=== PATIENT | female | born 2000 | race Caucasian/White ===

== ENCOUNTER 2022-02-08 09:54 | Emergency (ER) | payer OTHER, MEDICAID, SELFPAY ==
[2022-02-08] VITALS (28 sets, daily range): BP systolic 128–146; BP diastolic 73–93; PULSE 78–110; RESP 17–18; TEMP 37–37.5; O2SAT 93–100; BMI 21.9
[2022-02-08 11:12] LABS: Basophils % 0.3 %; Hematocrit 41.3 % (37.0-47.0); Hemoglobin 13.2 g/dL (11.5-15.3); Lymphocytes # 2.7 10^3/uL (1.5-6.5); Lymphocytes % 24.1 %; Mean Corpuscular Hemoglobin 25.1 pg (28.0-34.0); Mean Corpuscular Volume 78.7 fl (81-99); Mean Platelet Volume 11.4 fL (7.4-10.4); Monocytes # 0.8 10^3/uL (0.2-0.9); Monocytes % 7.1 %; Neutrophils % 68.1 %; Nucleated Red Blood Cells % 0 %; Platelet Count 380 10^3/cmm (130-400); Red Blood Count 5.25 10^6/uL (4.1-5.3); Red Cell Distribution Width 15.9 % (12.1-15.1)
[2022-02-08 11:28] LABS: HCG, Serum Qual Negative (Negative)
[2022-02-08 11:34] LABS: Alanine Aminotransferase 21 U/L (0-33); Albumin Level 5.4 g/dL (3.5-5.2); Alkaline Phosphatase 69 U/L (35-105); Anion Gap 22.9 (5-19); Aspartate Amino Transferase 16 U/L (0-32); Blood Urea Nitrogen 12 mg/dL (6-20); Calcium 10.7 mg/dL (8.5-10.5); Carbon Dioxide 19 mmol/L (22-29); Chloride 99 mmol/L (98-107); Globulin 3.8 g/dL (1.3-4.6); Glomerular Filtration Rate 106.7 mL/min (90-130); Glucose 122 mg/dL (65-115); Lipase 24 U/L (13-60); Osmolality Calculated 285 mOsm/kg (285-295); Potassium 3.9 mmol/L (3.5-5.1); Sodium 137 mmol/L (136-145); Total Bilirubin 0.9 mg/dL (0.15-1.2); Total Protein 9.2 g/dL (6.6-8.7)
--- NOTE | 2022-02-08 16:27 | ED_ITS ---
HPI - Abdominal Pain General: Chief Complaint: Nausea/Vomiting/Diarrhea Stated Complaint: n/v Time Seen by Provider: 02/08/22 16:17 Source: patient Mode of arrival: ambulatory Limitations: no limitations History of Present Illness: See nursing assessment. Patient with complaints of right lower quadrant abdominal pain, nausea vomiting since yesterday morning. Patient is also had mild subjective fever and muscle aches. She states she had diarrhea last week but no diarrhea now. She states she may be constipated. She is still nauseated now. She has been exposed to influenza A from her child that tested positive. She reports that she has not had a menses since she gave to her child 4 months ago. Patient reports no past medical history. She denies taking any routine medications. She denies any allergies to medications. Past surgical history includes right foot surgery, D&C last year. She still has her gallbladder and appendix. She denies tobacco or alcohol use. She does complain of mild dysuria. She denies any flank pain. Associated Symptoms: Reports chills, dysuria, fever(s), nausea and vomiting; Denies hematochezia and hematemesis Review of Systems Const: Reports: fever(s), chills and body aches Eyes: Denies: change in vision ENMT: Denies: throat pain Card: Denies: chest pain or palpitations Resp: Denies: dyspnea or wheezing GI: Reports: abdominal pain, nausea and vomiting; Denies: hematemesis or hematochezia : Reports: dysuria; Denies: flank pain Musc: Reports: other (Muscle aches); Denies: neck pain or back pain Skin/Breast: Denies: rash or pruritus Neuro: Denies: headache(s), numbness in extremities, weakness in extremities, lack of coordination, difficulty walking or dizziness Psych: Denies: anxiety Calvin/Lymph: Denies: enlarged lymph nodes PFS ED Supplemental PFS Information: Past surgical history includes right foot s urgery, D&C Physical Exam Const: COMMON NORMALS: no acute distress, patient oriented x3, no limitations and well nourished GENERAL APPEARANCE: cooperative HENMT: COMMON NORMALS: normocephalic and atraumatic HEAD & SCALP: normocephalic and atraumatic FACE & SINUS: normal facial exam Eye: COMMON NORMALS: EOMs intact bilaterally Neck/C-Spine: COMMON NORMALS: full ROM, no lymphadenopathy, supple and no meningeal signs GENERAL: Yes normal visual inspection Lymph: LYMPHATIC: no lymphadenopathy noted Chest: COMMONS NORMALS: normal inspection of the chest and normal palpation of entire chest wall CHEST: No Ecchymosis present and No rash Resp: COMMON NORMALS: normal respiratory effort, No retractions and clear to auscultation bilaterally EFFORT & INSPECTION: No respiratory distress AUSCULTATION: clear to auscultation bilaterally Cardio: COMMON NORMALS: regular rate, regular rhythm and Peripheral pulses 2+ throughout JUGULAR VENOUS DISTENTION: no JVD RATE: regular rate RHYTHM: regular rhythm PERIPHERAL PULSES: Peripheral pulses 2+ throughout GI: COMMON NORMALS: Soft to palpation, No hepatosplenomegaly present, no masses and no bruits PALPATION: Yes Soft to palpation and Yes No hepatosplenomegaly present OTHER: Patient has mild to moderate right lower quadrant abdominal pain with deep pa lpation. Normoactive bowel sounds throughout. No guarding or rebound. Back/Pelvis: OTHER: No CVA tenderness. Extremity: COMMON NORMALS: normal to inspection, full ROM and capillary refill normal Neuro: COMMON NORMALS: patient oriented x3, CN's II-XII intact bilaterally, no focal motor deficits and no sensory deficits noted MENINGEAL SIGNS: Yes no meningeal signs Psych: COMMON NORMALS: mental status grossly normal and Normal thought process present THOUGHT PROCESS: Normal thought process present Skin: COMMON NORMALS: no rashes or lesions noted and no wounds GENERAL SKIN EXAM: no rashes or lesions noted Course Vital Signs: Vital signs: Vital Signs Temperature 99.5 F 02/08/22 15:51 Pulse Rate 105 H 02/08/22 16:14 Respiratory Rate 18 02/08/22 16:14 Blood Pressure 138/88 02/08/22 18:00 Pulse Oximetry 100 02/08/22 17:50 Oxygen Delivery Me thod 02/08/22 16:14 MDM - Abdominal Pain Medical Decision Making Patient has had influenza exposure. She has had nausea and vomiting. Patient may have just viral gastroenteritis with mild dehydration. Will obtain CT scan of the abdomen to rule out appendicitis. Urine specimen is pending. Lab Data 02/08/22 11:00 02/08/22 11:00 Labs/Radiology: Radiology Impressions Abdomen/Pelvis CT 02/08/22 16:[address]: [address] evidence of acute intra-abdominal or pelvic pathology. 2. Additional findings, as above. Laboratory Results WBC 11.0 10^3/uL (4.5-13.0) 02/08/22 11:00 RBC 5.25 10^6/uL (4.1-5.3) 02/08/22 11:00 Hgb 13.2 g/dL (11.5-15.3) 02/08/22 11:00 Hct 41.3 % (37.0-47.0) 02/08/22 11:00 MCV 78.7 fl (81-99) L 02/08/22 11:00 MCH 25.1 pg (28.0-34.0) L 02/08/22 11:00 MCHC 32.0 g/dL (30.0-36.0) 02/08/22 11:00 RDW 15.9 % (12.1-15.1) H 02/08/22 11:00 Plt Count 380 10^3/cmm (130-400) 02/08/22 11:00 MPV 11.4 fL (7.4-10.4) H 02/08/22 11:00 Neut % (Auto) 68.1 % 02/08/22 11:00 Lymph % (Auto) 24.1 % 02/08/22 11:00 Mathews % (Auto) 7.1 % 02/08/22 11:00 Eos % (Auto) 0.0 % 02/08/22 11:00 Baso % (Auto) 0.3 % 02/08/22 11:00 Neut # (Auto) 7.50 10^3/uL (1.8-8.0) 02/08/22 11:00 Lymph # (Auto) 2.7 10^3/uL (1.5-6.5) 02/08/22 11:00 Mathews # (Auto) 0.8 10^3/uL (0.2-0.9) 02/08/22 11:00 Eos # (Auto) 0.0 10^3/uL (0.0-0.8) 02/08/22 11:00 Baso # (Auto) 0.0 10^3/uL (0.0-0.1) 02/08/22 11:00 Nucleated RBC % (auto) 0 % 02/08/22 11:00 Nucleated RBCs # 0.0 /100WBC 02/08/22 11:00 Sodium 137 mmol/L (136-145) 02/08/22 11:00 Potassium 3.9 mmol/L (3.5-5.1) 02/08/22 11:00 Chloride 99 mmol/L (98-107) 02/08/22 11:00 Carbon Dioxide 19 mmol/L (22-29) L 02/08/22 11:00 Anion Gap 22.9 (5-19) H 02/08/22 11:00 BUN 12 mg/dL (6-20) 02/08/22 11:00 Creatinine 0.7 mg/dL (0.5-0.9) 02/08/22 11:00 GFR Calculation 106.7 mL/min (90-130) 02/08/22 11:00 Glucose 122 mg/dL (65-115) H 02/08/22 11:00 Calculated Osmolality 285 mOsm/kg (285-295) 02/08/22 11:00 Calcium 10.7 mg/dL (8.5-10.5) H 02/08/22 11:00 Total Bilirubin 0.9 mg/dL (0.15-1.2) 02/08/22 11:00 AST 16 U/L (0-32) 02/08/22 11:00 ALT 21 U/L (0-33) 02/08/22 11:00 Alkaline Phosphatase 69 U/L (35-105) 02/08/22 11:00 Total Protein 9.2 g/dL (6.6-8.7) H 02/08/22 11:00 Albumin 5.4 g/dL (3.5-5.2) H 02/08/22 11:00 Globulin 3.8 g/dL (1.3-4.6) 02/08/22 11:00 Lipase 24 U/L (13-60) 02/08/22 11:00 HCG, Qual Negative (Negative) 02/08/22 11:00 Urine Color Yellow (Yellow) 02/08/22 18:06 Urine Appearance Hazy (CLEAR) A 02/08/22 18:06 Urine pH 7 (5-7) 02/08/22 18:06 Ur Specific [place] 1.010 (1.005-1.030) 02/08/22 18:06 Urine Protein 1+ (Negative) H 02/08/22 18:06 Urine Glucose (UA) Norm (Normal) 02/08/22 18:06 Urine Ketones 1+ (Negative) H 02/08/22 18:06 Urine Blood Neg (Negative) 02/08/22 18:06 Urine Nitrate Positive (Negative) H 02/08/22 18:06 Urine Bilirubin Neg (Negative) 02/08/22 18:06 Urine Urobilinogen Neg mg/dL (Negative) 02/08/22 18:06 Ur Leukocyte Esterase Negative (Negative) 02/08/22 18:06 Urine RBC Rare /hpf (0-2) 02/08/22 18:06 Urine WBC Rare /hpf (0-5) 02/08/22 18:06 Ur Squamous Epith Cells 5-10 /hpf (0-5) H 02/08/22 18:06 Amorphous Sediment Not Reportable 02/08/22 18:06 Urine Bacteria Trace /hpf (NONE) 02/08/22 18:06 Influenza Type A Ag Negative (Negative) 02/08/22 16:40 Influenza Type B Ag Negative (Negative) 02/08/22 16:40 SARS-CoV-2 Ag (Rapid) negative (Negative) 02/08/22 16:[address] Abd/Pel: Radiologist's impression: PROCEDURE INFORMATION: Exam: CT Abdomen And Pelvis With Contrast Exam date and time: 02/08/2022 5:05 PM Age: 21 years old Clinical indication: Other: Pelvic/ rlq; Patient HX: N/v rlq pain, vaginal childbirth 4 months prior; Additional info: Rlq abd pain; Preg test negative, n/v; R/O appendicitis TECHNIQUE: Imaging protocol: Computed tomography of the abdomen and pelvis with contrast. Axial, coronal and sagittal reformatted images were created and reviewed. Radiation optimization: All CT scans at this facility use at least one of these dose optimization techniques: automated exposure control; mA and/or kV adjustment per patient size (includes targeted exams where dose is matched to clinical indication); or iterative reconstruction. Contrast material: OMNIPAQUE 350; Contrast volume: 95 ml; Contrast route: INTRAVENOUS (IV);? COMPARISON: No relevant prior studies available. RADIATION DOSE METRICS: Total DLP (mGy-cm): 347.05 FINDINGS: Liver: Unremarkable. Gallbladder and bile ducts: No radiodense gallstones. No biliary ductal dilatation. Pancreas: Unremarkable. Spleen: Unremarkable. Adrenal glands: Normal. No mass. Kidneys and ureters: No mass. No radiodense calculi. No hydronephrosis. Stomach and bowel: No bowel wall thickening. No obstruction. No pneumatosis. Appendix: Normal. Intraperitoneal space: Small nonspecific free pelvic fluid, likely physiologic. No organized fluid collection. No free air. Vasculature: Unremarkable. No aneurysm. Lymph nodes: No pathologically enlarged lymph nodes. Urinary bladder: Unremarkable as visualized. Reproductive: Probable involuting right ovarian corpus luteal cyst. Bones/joints: No acute osseous abnormality. Soft tissues: Unremarkable. CT/CT abdomen pelvis w con* [id number]: 1. No CT evidence of acute intra-abdominal or pelvic pathology. 2. Additional findings, as above. ? Dictated By: Servando Goodwin MD Signed By: Servando Goodwin MD Signed Date/Time: 02/08/22 9297 Discharge Plan Discharge Patient Disposition: Home Clinical Impression: Abdominal pain, right lower quadrant, Viral gastroenteritis, Mild dehydration, Rupture of cyst of right ovary Nausea and vomiting Qualifiers: Vomiting type: unspecified Qualified Code(s): R11.2 - Nausea with vomiting, unspecified UTI (urinary tract infection) Qualifiers: Urinary tract infection type: acute cystitis Hematuria presence: without hematuria Qualified Code(s): N30.00 - Acute cystitis without hematuria Condition: Stable Prescriptions: New cephalexin 500 mg capsule 500 mg PO QID 5 Days Qty: 20 0RF Rx Instructions: for infection ondansetron 4 mg tablet,disintegrating 4 mg PO Q6H PRN (Reason: nausea and vomiting) Qty: 10 1RF dicyclomine 20 mg tablet 20 mg PO QID Qty: 10 1RF Rx Instructions: prn pain/cramps Discharge Orders: Discharge ED (Routine); Ordered 02/08/22 Ordered By: Brayan Gonzalez Discharge Diet: Advance as tolerated Discharge Activity: Increase activity as tolerated Patient Instructions: Urinary Tract Infection in Women (ED), Gastroenteritis (ED), Acute Nausea and Vomiting (ED), Viral Syndrome (ED), Abdominal Pain (ED), Ruptured Ovarian Cyst (ED), Opioid Safety, Pain Management Activity Restrictions/Additional Instructions: Drink plenty fluids. Take medications as prescribed. Start cephalexin tomorrow morning. You have a mild urinary tract infection. You have a small ovarian cyst that ruptured that we will heal on its own. May take Tylenol or ibuprofen as needed for pain. Follow-up with family doctor as needed. Coding Level of Care Code ED Orthotist Or Prosthetist for Abdiaziz Fwjuany Exam Comprehensive
[2022-02-08] MEDS: ondansetron 2 mg/ML SDV 2 mL 4 MG IVP (16:37)
[2022-02-08] MEDS: sodium chloride 0.9% 1,000 ML 999 ML IV (16:37)
[2022-02-08 17:07] LABS: SARS Covid-2 Antigen negative (Negative)
[2022-02-08 17:17] LABS: Influenza A by IFA Negative (Negative); Influenza B by IFA Negative (Negative)
[2022-02-08 18:16] LABS: Blood Urine Neg (Negative); Glucose Urine UA Norm (Normal); Ketones Urine 1+ (Negative); Protein Urine 1+ (Negative); Urine Appearance Hazy (CLEAR); Urine Color Yellow (Yellow); pH Urine 7 (5-7)
[2022-02-08 18:17] LABS: Add Urine Microscopic? YES; Bilirubin Urine Neg (Negative); Leukocyte Esterase Urine Negative (Negative); Nitrate Urine Positive (Negative); Urobilinogen Urine Neg (Negative)
[2022-02-08 18:26] LABS: Add Urine Culture? No; Bacteria Urine TRACE /hpf; RBC Urine RARE /hpf (0-2); WBC Urine RARE /hpf (0-5)
== END 2022-02-08 19:01 | disposition home or self-care (01) ==
PROVIDERS: Physician Assistant; Emergency Provider Family Medicine
DX: A08.4 Viral intestinal infection, unspecified (principal); E86.0 Dehydration; N83.201 Unspecified ovarian cyst, right side; N30.00 Acute cystitis without hematuria; Z20.822 Contact with and (suspected) exposure to COVID-19
CPT/HCPCS: 36415; 74177; 80053; 81001; 83690; 84703; 85025; 87426; 87804; 96361; 96374; 99285; J2405; J7030; Q9967